=== PATIENT | male | born 1970 | race Caucasian/White ===

== ENCOUNTER → 2019-04-28 17:39 | Outpatient (CLI) | payer OTHER, SELFPAY | PROVIDERS: Visit Provider Podiatrist | DX: Z98.890 Other specified postprocedural states (principal) | CPT/HCPCS: 87070; 87077; 87186; 87205 ==

== ENCOUNTER → 2019-05-11 13:07 | Outpatient (CLI) | payer OTHER, SELFPAY ==
--- NOTE | 2019-05-11 13:18 | XR_ITS ---
PROCEDURE: XR ankle WT BEARING RT 3V CLINICAL INDICATION: post-op Follow-up surgery COMPARISON: Foot R from 04/07/2019 from 04/08/[address] foot RT wo con from 04/08/2019 from 04/08/2019 FINDINGS: The posterior splint has been removed. There is a bone plate over the distal fibula. A transverse screw is present within the navicular. Transverse screws present between the medial and mid cuneiform. An oblique screw is noted extending from the proximal aspect of the 1st metatarsal into the mid cuneiform region. Posterior plates with screws are present at the 2nd and 3rd metatarsal tarsal joint. There is decrease in bone density at the distal aspect of the medial cuneiform with some fragmentation at that region. There is good alignment. Oblique fracture of the distal fibula once again noted with good alignment IMPRESSION: Postsurgical changes as described above with good alignment Dictated by: Josué Ortiz MD 05/11/2019 14:06 Signed by: <Electronically signed by Josué Ortiz MD in [place]> 05/11/2019 14:09
== END ==
PROVIDERS: Visit Provider Podiatrist
DX: Z98.890 Other specified postprocedural states (principal)
CPT/HCPCS: 73610; 73630

== ENCOUNTER → 2019-05-25 14:11 | Outpatient (CLI) | payer OTHER, SELFPAY ==
--- NOTE | 2019-05-25 14:20 | XR_ITS ---
PROCEDURE: XR ANKLE WT BEARING RT MIN 3V CLINICAL INDICATION: post op views follow-up surgery COMPARISON: Ankle R from 04/07/2019 XR ANKLE WT BEARING RT MIN 3V from 05/11/2019 FINDINGS: Status post ORIF distal fibula with good alignment with lateral bone plate present. IMPRESSION: No change status post ORIF distal fibula with good alignment Dictated by: Josué Ortiz MD 05/25/2019 15:26 Signed by: <Electronically signed by Josué Ortiz MD in [place]> 05/25/2019 15:26
--- NOTE | 2019-05-25 14:20 | XR_ITS ---
PROCEDURE: XR FOOT WT BEARING RT 3V CLINICAL INDICATION: postop views Follow-up surgery COMPARISON: XR FOOT WT BEARING RT 3V from 05/11/2019 FINDINGS: Status post midfoot fusion as previously described with no change in the screws in bone plates. There remains good alignment. Osteopenia noted at the metatarsophalangeal joints IMPRESSION: No change midfoot fusion with good alignment Dictated by: Josué Ortiz MD 05/25/2019 16:05 Signed by: <Electronically signed by Josué Ortiz MD in [place]> 05/25/2019 16:05
== END ==
PROVIDERS: Visit Provider Podiatrist
DX: Z98.890 Other specified postprocedural states (principal)
CPT/HCPCS: 73610; 73630

== ENCOUNTER 2019-06-15 10:15 | Outpatient (RCR) | payer OTHER, SELFPAY ==
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
== END 2019-06-15 10:20 | disposition home or self-care (01) ==
LOC: PT 10:15
PROVIDERS: Visit Provider Podiatrist
DX: M25.571 Pain in right ankle and joints of right foot (principal); M79.671 Pain in right foot; Z98.890 Other specified postprocedural states
CPT/HCPCS: 97163

== ENCOUNTER → 2019-07-06 15:23 | Outpatient (CLI) | payer OTHER, SELFPAY ==
--- NOTE | 2019-07-06 15:27 | XR_ITS ---
PROCEDURE: XR ANKLE WT BEARING RT MIN 3V CLINICAL INDICATION: postop views Follow-up surgery/ORIF COMPARISON: Ankle R from 04/07/2019 XR ANKLE WT BEARING RT MIN 3V from 05/11/2019 XR ANKLE WT BEARING RT MIN 3V from 05/25/2019 FINDINGS: Lateral bone plate is present at the distal fibula with good alignment. No acute fracture or dislocation IMPRESSION: . good alignment status post ORIF distal fibula Dictated by: Josué Ortiz MD 07/06/2019 17:10 Electronically signed by Josué Ortiz MD in [place] 07/06/2019 17:10
--- NOTE | 2019-07-06 15:27 | XR_ITS ---
PROCEDURE: XR FOOT WT BEARING RT 3V CLINICAL INDICATION: postop views Follow-up surgery COMPARISON: Foot R from 04/07/[address] foot RT wo con from 04/08/2019 XR FOOT WT BEARING RT 3V from 05/11/2019 XR FOOT WT BEARING RT 3V from 05/25/2019 FINDINGS: No change status post arthrodesis of the 1st and 2nd cuneiform and the 1st 2nd and 3rd metatarsal tarsal junction. A screw is also present within the medial aspect of the navicular. Of there is good alignment. Multiple foot fractures once again noted unchanged IMPRESSION: Good alignment status post ORIF of the midfoot with no significant change Dictated by: Josué Ortiz MD 07/06/2019 17:13 Electronically signed by Josué Ortiz MD in [place] 07/06/2019 17:13
== END ==
PROVIDERS: Visit Provider Podiatrist
DX: Z98.890 Other specified postprocedural states (principal); M25.571 Pain in right ankle and joints of right foot
CPT/HCPCS: 73610; 73630

== ENCOUNTER → 2019-08-30 15:14 | Outpatient (CLI) | payer OTHER, SELFPAY ==
--- NOTE | 2019-08-30 15:20 | XR_ITS ---
PROCEDURE: XR FOOT WT BEARING RT 3V CLINICAL INDICATION: postop views Weightbearing COMPARISON: Foot R from 04/07/2019 XR FOOT WT BEARING RT 3V from 05/11/2019 XR FOOT WT BEARING RT 3V from 05/25/2019 XR FOOT WT BEARING RT 3V from 07/06/2019 FINDINGS: No fracture or dislocation. Old fracture distal 4th metatarsal head is noted. No lytic or blastic change. There is diffuse demineralization The joint spaces are well-preserved. Previously reported postsurgical changes are again noted involving the midfoot. Metallic fixation plate with reduction screws is also seen in the distal fibula. IMPRESSION: No acute findings or significant change from 07/06/2019. Dictated by: Carmelo Anders 08/30/2019 16:54 Electronically signed by Carmelo Anders in [place] 08/30/2019 16:54
--- NOTE | 2019-08-30 15:20 | XR_ITS ---
PROCEDURE: XR ANKLE WT BEARING RT MIN 3V CLINICAL INDICATION: postop views COMPARISON: Weightbearing FINDINGS: A metallic fixation plate with reduction screws is seen in the distal fibula. Reduction hardware is also seen in the midfoot. There is diffuse demineralization. No acute fracture dislocation or destructive lesion is apparent. Ankle mortise is intact. Mild soft tissue swelling is seen over the lateral malleolus. IMPRESSION: No acute findings. Dictated by: Carmelo Anders 08/30/2019 16:58 Electronically signed by Carmelo Anders in [place] 08/30/2019 16:58
== END ==
PROVIDERS: Visit Provider Podiatrist
DX: Z98.890 Other specified postprocedural states (principal); S82.891D Other fracture of right lower leg, subsequent encounter for closed fracture with routine healing; S92.254D Nondisplaced fracture of navicular [scaphoid] of right foot, subsequent encounter for fracture with routine healing; S92.234D Nondisplaced fracture of intermediate cuneiform of right foot, subsequent encounter for fracture with routine healing; S92.244D Nondisplaced fracture of medial cuneiform of right foot, subsequent encounter for fracture with routine healing
CPT/HCPCS: 73610; 73630